=== PATIENT | female | born 1935 | race Caucasian/White ===

== ENCOUNTER 2016-10-01 11:45 | Emergency (ER) | payer MEDICARE, MEDICAID | END 2016-10-01 12:45 | disposition home or self-care (01) | LOC: ER 11:45 | DX: R04.0 Epistaxis (principal); Z99.81 Dependence on supplemental oxygen; D64.9 Anemia, unspecified; I25.2 Old myocardial infarction; J44.9 Chronic obstructive pulmonary disease, unspecified; I11.9 Hypertensive heart disease without heart failure; E11.9 Type 2 diabetes mellitus without complications; Z79.82 Long term (current) use of aspirin; Z79.899 Other long term (current) drug therapy ==